=== PATIENT | male | born 1945 | race Hispanic/Latino ===

== ENCOUNTER 2016-11-09 13:04 | Emergency (ER) | payer MEDICARE, OTHER ==
[~2016-11-09] VITALS: Ht 160 cm; Wt 65.8 kg
[2016-11-09] MEDS ORDERED: FINA5TAB2 PO (13:28)
[2016-11-09] MEDS ORDERED: VIAG100T PO (13:28)
[2016-11-09] MEDS ORDERED: ALFU10TA2 PO (13:28)
[2016-11-09] MEDS ORDERED: ATOR1TAB19 PO (13:28)
[2016-11-09] MEDS ORDERED: LISI20TA3 PO (13:28)
[2016-11-09] MEDS ORDERED: ONDANSETRON 4MG/2ML VIAL (J2405) IV ONE (14:15)
[2016-11-09] MEDS ORDERED: NS 1,000 ML IV ONE (14:15)
[2016-11-09 14:43] LABS: BASO % 0.1 % (0.0-1.0); EOS % 0.4 % (0.0-3.0); LARGE UNSTAINED CELL # 0.1 K/mm3 (0.0-0.4); LARGE UNSTAINED CELL % 0.9 % (0.0-4.0); LYMPH # 0.3 K/mm3 (1.5-4.5); LYMPH % 3.6 % (24.0-44.0); MEAN CORPUSCULAR HEMOGLOBIN 31.2 pg (27.0-33.0); MEAN CORPUSCULAR HGB CONC 34.2 g/dl (32.0-36.5); MEAN CORPUSCULAR VOLUME 91.3 fl (80.0-96.0); MONO # 0.6 K/mm3 (0.0-0.8); MONO % 6.7 % (0.0-5.0); NEUTROPHILS # 7.7 K/mm3 (1.8-7.7); NEUTROPHILS % 88.4 % (36.0-66.0); PLATELET COUNT, AUTOMATED 187 k/mm3 (150-450); RED CELL DISTRIBUTION WIDTH 12.4 % (11.5-14.5); WHITE BLOOD COUNT 8.7 K/mm3 (4.0-10.0)
[2016-11-09 15:04] LABS: ALBUMIN 3.6 GM/DL (3.2-5.2); ALKALINE PHOSPHATASE 92 U/L (45-117); ALT/SGPT 26 U/L (12-78); ANION GAP 10 MEQ/L (8-16); AST/SGOT 13 U/L (15-37); BILIRUBIN,DIRECT 0.2 MG/DL (0.0-0.2); BILIRUBIN,TOTAL 0.8 MG/DL (0.2-1.0); BLOOD UREA NITROGEN 23 MG/DL (7-18); CALCIUM LEVEL 8.3 MG/DL (8.8-10.2); CARBON DIOXIDE LEVEL 27 MEQ/L (21-32); CHLORIDE LEVEL 103 MEQ/L (98-107); GLOMERULAR FILTRATION RATE > 60.0 (>42); GLUCOSE, FASTING 123 MG/DL (83-110); POTASSIUM SERUM 3.8 MEQ/L (3.5-5.1); SODIUM LEVEL 140 MEQ/L (136-145); TOTAL PROTEIN 6.6 GM/DL (6.4-8.2)
[2016-11-09] MEDS ORDERED: ZOFR4TAB3 PO (15:17)
[2016-11-09 15:37] VITALS: BP 97/60
== END 2016-11-09 15:37 | disposition home or self-care (01) ==
LOC: M ED 14:26
DX: A05.9 Bacterial foodborne intoxication, unspecified (principal); E86.0 Dehydration; R11.2 Nausea with vomiting, unspecified; R19.7 Diarrhea, unspecified; Z79.899 Other long term (current) drug therapy
CPT/HCPCS: 36415; 80048; 80076; 83690; 85025; 96360; 96374; 99283; J2405

== ENCOUNTER 2016-12-21 13:47 | Emergency (ER) | payer MEDICARE, OTHER ==
[~2016-12-21] VITALS: Ht 160 cm; Wt 66.3 kg
[~2016-12-21 13:47] MED LIST: ALFU10TA2 PO; ATOR1TAB19 PO; FINA5TAB2 PO; LISI20TA3 PO; VIAG100T PO; ZOFR4TAB3 PO
[2016-12-21 13:48] VITALS: BP 119/71
[2016-12-21] MEDS ORDERED: AMOX500C PO (14:15)
[2016-12-21] MEDS ORDERED: ACETAMINOPHEN 325 MG TAB PO ONE (14:15)
[2016-12-21] MEDS ORDERED: AMOXICILLIN 500 MG CAP PO ONE (14:15)
[2016-12-21] MEDS ORDERED: NORCOTAB PO (14:15)
== END 2016-12-21 14:37 | disposition home or self-care (01) ==
LOC: M ED 14:27
DX: K04.7 Periapical abscess without sinus (principal); K02.9 Dental caries, unspecified; K13.79 Other lesions of oral mucosa; I10 Essential (primary) hypertension; E78.9 Disorder of lipoprotein metabolism, unspecified; Z79.899 Other long term (current) drug therapy

== ENCOUNTER → 2016-12-29 | Outpatient (CLI) | payer MEDICARE, OTHER ==
[~2016-12-29] MED LIST changes: +AMOX500C PO; +NORCOTAB PO
--- NOTE | 2016-12-29 14:15 | REP ---
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 Technique: PA and lateral. Comparison: 03/31/2013. Findings: Mediastinum and cardiac silhouette are normal. Lung dunne demonstrate stable chronic interstitial changes and calcified granulomata. No acute consolidation, effusion, or pneumothorax. Skeletal structures demonstrate age-related changes. Impression: Chronic stable changes. No acute cardiopulmonary process. Signed by Adalid Casey MD 12/29/2016 02:07 P
== END ==
LOC: M WUC 13:46
PROVIDERS: ATTEND Family Medicine Adult Medicine
DX: Z11.1 Encounter for screening for respiratory tuberculosis (principal); J98.4 Other disorders of lung

== ENCOUNTER → 2023-08-26 | Outpatient (REF) | payer MEDICARE, OTHER ==
[~2023-08-26] MED LIST changes: -ALFU10TA2 PO; +ALFU10TA3 PO; +HYDR-3715 PO; -LISI20TA3 PO; +LISI20TA37 PO; -NORCOTAB PO; +ZOFR4TAB14 PO; -ZOFR4TAB3 PO
== END ==
LOC: M LABSMT 13:50
PROVIDERS: ATTEND Urology
DX: N40.0 Benign prostatic hyperplasia without lower urinary tract symptoms (principal)

== ENCOUNTER 2024-03-12 10:35 | Emergency (ER) | payer MEDICARE, OTHER ==
[2024-03-12] VITALS (7 sets, daily range): BP systolic 123–168; BP diastolic 62–68; TEMP 97.2; O2SAT 97
[~2024-03-12] VITALS: Ht 160 cm; Wt 65.5 kg
[~2024-03-12 10:35] MED LIST changes: +ALFU10TA23 PO; -ALFU10TA3 PO
[2024-03-12 12:32] LABS: BASO % 0.3 % (0.0-1.0); EOS # 0.2 10^3/uL (0.0-0.5); EOS % 3.2 % (0.0-3.0); HEMATOCRIT 42.3 % (42.0-52.0); HEMOGLOBIN 13.9 g/dl (13.5-17.5); LYMPH # 1.2 10^3/uL (1.5-5.0); LYMPH % 19.9 % (24.0-44.0); MEAN CORPUSCULAR HGB CONC 32.9 g/dl (32.0-36.5); MEAN CORPUSCULAR VOLUME 91.2 fl (80.0-96.0); MONO # 0.5 10^3/uL (0.0-0.8); MONO % 8.6 % (2.0-8.0); NEUTROPHILS # 4.1 10^3/uL (1.5-8.5); NEUTROPHILS % 67.5 % (36.0-66.0); PLATELET COUNT, AUTOMATED 166 10^3/uL (150-450); RED BLOOD COUNT 4.64 10^6/uL (4.30-6.10)
[2024-03-12 13:15] LABS: ALBUMIN 3.9 G/DL (3.2-5.2); ALKALINE PHOSPHATASE 113 U/L (46-116); ALT/SGPT 34 U/L (7.0-40); AST/SGOT 17 U/L (<34); BILIRUBIN,DIRECT 0.2 MG/DL (<0.4); BILIRUBIN,TOTAL 0.7 MG/DL (0.3-1.2); BLOOD UREA NITROGEN 19 MG/DL (9-23); CALCIUM LEVEL 8.9 MG/DL (8.3-10.6); CARBON DIOXIDE LEVEL 29 MMOL/L (20-31); CHLORIDE LEVEL 104 MMOL/L (98-107); CREATININE FOR GFR 0.75 MG/DL (0.70-1.30); GLOMERULAR FILTRATION RATE > 60.0 (>42); GLUCOSE, FASTING 94 MG/DL (74-106); POTASSIUM SERUM 3.7 MMOL/L (3.5-5.1); SODIUM LEVEL 138 MMOL/L (136-145); TOTAL PROTEIN 7.2 G/DL (5.7-8.2)
[2024-03-12 13:17] LABS: FREE T4 2.18 NG/DL (0.89-1.76); THYROID STIMULATING HORMONE 2.979 uIU/ML (0.55-4.78)
[2024-03-12] MEDS ORDERED: PRED20TA PO (22:12)
[2024-03-12] MEDS ORDERED: VALA1TAB5 PO (22:12)
[2024-03-12] MEDS: valACYclovir HCL 500 MG TAB PO ONE (23:07)
[2024-03-12] MEDS: predniSONE 20 MG TAB PO ONE (23:07)
== END 2024-03-12 23:50 | disposition home or self-care (01) ==
LOC: M ED 10:35
DX: G51.0 Bell's palsy (principal); R94.02 Abnormal brain scan; R00.1 Bradycardia, unspecified; I25.2 Old myocardial infarction; I10 Essential (primary) hypertension; E78.5 Hyperlipidemia, unspecified; N40.0 Benign prostatic hyperplasia without lower urinary tract symptoms; Z79.52 Long term (current) use of systemic steroids; Z79.899 Other long term (current) drug therapy
CPT/HCPCS: 36415; 70450; 70544; 70551; 80047; 80048; 80076; 84439; 84443; 85025; 86618; 93005; 93041; 94760; 99285; J7512

== ENCOUNTER → 2025-02-09 | Outpatient (CLI) | payer MEDICARE, OTHER ==
[~2025-02-09] MED LIST changes: +PRED20TA PO; +VALA1TAB5 PO
== END ==
LOC: M PLAIMG 11:17
PROVIDERS: ATTEND Nurse Practitioner Family
DX: I10 Essential (primary) hypertension (principal)